=== PATIENT | female | born 1970 | race African-American/Black ===

== ENCOUNTER 2018-07-16 14:52 | Emergency (ER) | payer OTHER ==
--- NOTE | 2018-07-16 17:14 | ED ---
Psychiatric Complaint - HPI Summary HPI Summary: This patient is a 47 year old female presenting to [facility] with a chief complaint of cough for one month. She has tried over the counter medications but they have not relieved her symptoms. The patient denies fever, chills, nausea, and vomiting. - History Of Current Complaint Chief Complaint: EDUpperRespComplaint Time Seen by Provider: 07/16/18 17:00 Hx Obtained From: Patient Onset/Duration: Lasting Weeks Severity Initially: Severe Severity Currently: Severe - Allergies/Home Medications Allergies/Adverse Reactions: Allergies Allergy/AdvReac Type Severity Reaction Status Date / Time bee venom protein (honey bee) Allergy Swelling Verified 07/16/18 16:49 Of Face,Lips,& Throat latex Allergy Hives Verified 07/16/18 16:49 Penicillins Allergy Difficulty Verified 07/16/18 16:49 Swallowing PMH/Surg Hx/FS Hx/Imm Hx Cardiovascular History: Reports: Hx Hypertension - ON DAILY MED GI History: Reports: Hx Gastroesophageal Reflux Disease - [place] WITH DAILY MED Musculoskeletal History: Reports: Hx Tendonitis - BOTH HANDS/WRISTS Sensory History: Reports: Hx Contacts or Glasses - GLASSES Denies: Hx Hearing Aid Opthamlomology History: Reports: Hx Contacts or Glasses - GLASSES Psychiatric History: Reports: Hx Anxiety - ROUTINE AND PRN MEDICATION FOR - Cancer History Hx Chemotherapy: No Hx Radiation Therapy: No - Surgical History Surgery Procedure, Year, and Place: 1999 [place] [facility] [place] Anesthesia Reactions: No Infectious Disease History: No Infectious Disease History: Denies: Traveled Outside the [place] in Last 30 Days - Social History Alcohol Use: Occasionally Alcohol Amount: WEEKENDS Substance Use Type: Reports: None Smoking Status (MU): Former Smoker Amount Used/How Often: 1 PPD ?? X 1 YEAR Physical Exam Vital Signs On Initial Exam: Initial Vitals Temp Pulse Resp BP Pulse Ox 97.1 F 88 18 159/88 98 07/16/18 15:05 07/16/18 15:05 07/16/18 15:05 07/16/18 15:05 07/16/18 15:05 Diagnostics - Vital Signs Vital Signs Temp Pulse Resp BP Pulse Ox 07/16/18 16:48 96.9 F 91 14 155/91 99 07/16/18 15:05 97.1 F 88 18 159/88 98 - Laboratory Lab Statement: Any lab studies that have been ordered have been reviewed, and results considered in the medical decision making process. Discharge - Discharge Plan Referrals: Mary Kay Parham DO [Primary Care Provider] - - Attestation Statements Document Initiated by Scribe: Yes
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
[2018-07-16 18:17] LABS: Rapid Strep Molecular Negative (Negative)
[2018-07-16 18:45] VITALS: BP 138/84
== END 2018-07-16 18:44 | disposition home or self-care (01) ==
LOC: ED 14:52
DX: J06.9 Acute upper respiratory infection, unspecified (principal); I10 Essential (primary) hypertension; K21.9 Gastro-esophageal reflux disease without esophagitis; F41.9 Anxiety disorder, unspecified; Z88.0 Allergy status to penicillin; Z91.040 Latex allergy status; Z79.899 Other long term (current) drug therapy; Z87.891 Personal history of nicotine dependence
CPT/HCPCS: 71046; 87651; 99281

== ENCOUNTER 2019-11-19 22:52 | Inpatient (IN) ==
[2019-11-20 02:55] LABS: ALT 38 U/L (7-52); Albumin 4.5 g/dL (3.2-5.2); Albumin/Globulin Ratio 1.6 (1-3); Alkaline Phosphatase 212 U/L (34-104); BUN/Creatinine Ratio 11.5 (8-20); Blood Urea Nitrogen 7 mg/dL (6-24); CO2 Carbon Dioxide 15 mmol/L (22-32); Calcium 8.8 mg/dL (8.6-10.3); Chloride 98 mmol/L (101-111); EGFR African American 125.6 (>60); EGFR Non-African American 103.8 (>60); Globulin 2.9 g/dL (2-4); Glucose 92 mg/dL (70-100); Sodium 124 mmol/L (135-145); Total Protein 7.4 g/dL (6.4-8.9)
[2019-11-20 02:57] LABS: Troponin I 0.01 ng/mL (<0.03)
[2019-11-20 03:13] LABS: INR 1.33 (0.82-1.09)
[2019-11-20 03:17] LABS: Anion Gap 11 mmol/L (2-11)
[2019-11-20 03:28] LABS: Alcohol, S 54 mg/dL (<10)
[2019-11-20] MEDS ORDERED: Furosemide 40 mg/4 ml IV VIAL IV SLOW PU ONE (03:29)
[2019-11-20] MEDS ORDERED: Iohexol 300 (CONTRAST) 10 ML SDV IV ONE (03:34)
[2019-11-20 04:02] LABS: ABS Lymphocytes 1.4 10^3/ul (1.0-4.8); ABS Monocytes 0.4 10^3/ul (0-0.8); ABS Neutrophils 1.6 10^3/ul (1.5-7.7); Eosinophil % 1.3 %; Hematocrit 38 % (35-47); Hemoglobin 12.6 g/dL (12.0-16.0); Lymphocyte % 40.1 %; Mean Corpuscular HGB Conc 33 g/dL (31-36); Mean Corpuscular Hemoglobin 29 pg (27-31); Mean Corpuscular Volume 89 fL (80-97); Mean Platelet Volume 7.8 fL (7.4-10.4); Nucleated Red Blood Cells % 0.3; Platelet Count 158 10^3/uL (150-450); Red Blood Count 4.28 10^6 /uL (3.70-4.87); Red Cell Distribution Width 14 % (10-15); White Blood Count 3.5 10^3/uL (3.5-10.8)
[2019-11-20 04:18] LABS: Potassium Redraw 4.1 mmol/L (3.5-5.0)
[2019-11-20] MEDS ORDERED: Ondansetron 4 mg VIAL 2 MG/ML 2 ml VIAL IV PRN (05:54)
[2019-11-20] MEDS ORDERED: Thiamine 100 MG/ML 2 ml VIAL (200 mg) IM ONE (05:54)
[2019-11-20] MEDS ORDERED: Thiamine 100 MG/ML 2 ml VIAL 100 MG, Folic Acid 1 MG, Multiple Vitamin IV ADULT 10 ML i... IV ONE (07:30)
[2019-11-20 08:57] LABS: BUN/Creatinine Ratio 10.9 (8-20); Blood Urea Nitrogen 6 mg/dL (6-24); CO2 Carbon Dioxide 18 mmol/L (22-32); Calcium 9.8 mg/dL (8.6-10.3); Chloride 101 mmol/L (101-111); EGFR African American 141.6 (>60); Glucose 87 mg/dL (70-100); Sodium 133 mmol/L (135-145)
[2019-11-20 09:16] LABS: Troponin I 0.01 ng/mL (<0.03)
[2019-11-20 09:47] LABS: Anion Gap 14 mmol/L (2-11)
[2019-11-20] MEDS: Multivitamins/Minerals TAB PO SCH (10:01)
[2019-11-20] MEDS ORDERED: Potassium Chlor 20 meq TAB.ER PO ONE ×2 (14:05→19:20)
[2019-11-20 22:50] LABS: Ferritin 149.1 ng/mL (11-307)
[2019-11-21 02:17] LABS: Total Iron Binding Capacity 431 mcg/dL (250-450); Transferrin 308 mg/dL (203-362)
[2019-11-21 02:49] LABS: TSH Ultra Thyroid Stim Horm 4.18 mcIU/mL (0.34-5.60)
[2019-11-21 06:20] LABS: ABS Lymphocytes 1.1 10^3/ul (1.0-4.8); ABS Monocytes 0.6 10^3/ul (0-0.8); ABS Neutrophils 2.6 10^3/ul (1.5-7.7); Eosinophil % 1.1 %; Hematocrit 36 % (35-47); Hemoglobin 12.3 g/dL (12.0-16.0); Lymphocyte % 24.8 %; Mean Corpuscular HGB Conc 34 g/dL (31-36); Mean Corpuscular Hemoglobin 30 pg (27-31); Mean Corpuscular Volume 88 fL (80-97); Mean Platelet Volume 8.1 fL (7.4-10.4); Nucleated Red Blood Cells % 0.2; Platelet Count 155 10^3/uL (150-450); Red Blood Count 4.15 10^6 /uL (3.70-4.87); Red Cell Distribution Width 14 % (10-15); White Blood Count 4.3 10^3/uL (3.5-10.8)
[2019-11-21 06:44] LABS: Albumin 3.8 g/dL (3.2-5.2); Albumin/Globulin Ratio 1.7 (1-3); Calcium 8.8 mg/dL (8.6-10.3); EGFR Non-African American 105.8 (>60); Globulin 2.2 g/dL (2-4); Indirect Bilirubin 1.3 mg/dL (0.3-1.0); Potassium 3.2 mmol/L (3.5-5.0); Total Bilirubin 2.7 mg/dL (0.2-1.0)
[2019-11-21] MEDS ORDERED: Potassium Chlor 20 meq TAB.ER PO ONE ×2 (06:55→13:30)
[2019-11-21 07:04] LABS: INR 1.38 (0.82-1.09)
[2019-11-21 08:19] LABS: Magnesium 1.2 mg/dL (1.9-2.7)
[2019-11-21] MEDS ORDERED: HYDROmorphone 1 MG/1 ML SYRINGE ONE (08:32)
[2019-11-21] MEDS ORDERED: Midazolam 5 mg/5 ml VIAL 1 mg/ml 5 ml VIAL (5 mg) ONE (08:32)
[2019-11-21] MEDS ORDERED: diPHENhydraMINE IV 50 MG/ML 1 ml VIAL (BENADRYL) ONE (08:33)
[2019-11-21] MEDS ORDERED: VERAPAMIL 2.5 MG/ML 2 ML VIAL ** 5 mg/2 ml ONE (08:33)
[2019-11-21] MEDS ORDERED: Heparin 1,000 UNIT/ML 10 ml (10,000 UNITS) CATHLAB/DIALYSIS ONE (08:33)
[2019-11-21] MEDS ORDERED: Lidocaine 1% VIAL 10 MG/ML VIAL ONE (08:33)
[2019-11-21] MEDS ORDERED: Heparin 2 UNITS/ML 1000 mls 2,000 ML IV ONE (08:33)
[2019-11-21] MEDS ORDERED: nitroGLYCERIN DRIP 0 MCG/0 ML BTL ONE (08:33)
[2019-11-21] MEDS ORDERED: Iohexol 350 (CONTRAST) 200 ML MDV IV ONE (08:34)
[2019-11-21] MEDS ORDERED: Potassium Chlor 20 meq TAB.ER PO SCH (09:00)
[2019-11-21] MEDS ORDERED: NS 0.9% 1000 ml BAG 1,000 ML IV SCH (09:45)
[2019-11-21] MEDS ORDERED: Digoxin IV 0.5 MG/2 ML AMP (0.25 MG/ML) IV SLOW PU ONE (11:58)
[2019-11-21] MEDS ORDERED: Magnesium Sulfate IV 3 GM in NS 0.9% 100 ml BAG 100 ML IVPB ONE (11:59)
[2019-11-21] MEDS: Multivitamins/Minerals TAB PO SCH (12:15)
[2019-11-21] MEDS: Digoxin IV 0.5 MG/2 ML AMP (0.25 MG/ML) IV SLOW PU ONE ×2 (12:19→12:27)
[2019-11-21] MEDS ORDERED: Digoxin IV 0.5 MG/2 ML AMP (0.25 MG/ML) ONE (12:26)
[2019-11-21 13:33] LABS: BUN/Creatinine Ratio 16.4 (8-20); Calcium 8.6 mg/dL (8.6-10.3); EGFR African American 125.6 (>60); EGFR Non-African American 103.8 (>60); Magnesium 1.7 mg/dL (1.9-2.7); Potassium 3.7 mmol/L (3.5-5.0)
[2019-11-22] MEDS ORDERED: Morphine 2 MG/ML SYRINGE IV ONE (01:29)
[2019-11-22 06:27] LABS: BUN/Creatinine Ratio 17.6 (8-20); Calcium 8.9 mg/dL (8.6-10.3); EGFR African American 154.5 (>60); EGFR Non-African American 127.6 (>60); Magnesium 1.8 mg/dL (1.9-2.7); Potassium 3.8 mmol/L (3.5-5.0)
[2019-11-22] MEDS ORDERED: Magnesium Sulfate 2 gm BAG 2 GM/50 ML BAG IVPB ONE (06:49)
[2019-11-22] MEDS ORDERED: Potassium Chlor 20 meq TAB.ER PO SCH (09:00)
[2019-11-22] MEDS: Multivitamins/Minerals TAB PO SCH (09:05)
[2019-11-23 07:17] LABS: BUN/Creatinine Ratio 15.1 (8-20); Calcium 8.6 mg/dL (8.6-10.3); EGFR African American 147.7 (>60); EGFR Non-African American 122.1 (>60); Magnesium 1.6 mg/dL (1.9-2.7); Potassium 3.5 mmol/L (3.5-5.0)
[2019-11-23] MEDS ORDERED: Potassium Chlor 20 meq TAB.ER PO ONE (08:00)
[2019-11-23] MEDS ORDERED: Magnesium Sulfate IV 3 GM in NS 0.9% 100 ml BAG 100 ML IVPB ONE (08:00)
[2019-11-23] MEDS: Multivitamins/Minerals TAB PO SCH (09:06)
[2019-11-24] MEDS ORDERED: Magnesium Sulf 4 GM/100 ML IV 4,000 MG/100 ML BAG IVPB ONE (08:29)
[2019-11-24 09:10] LABS: Albumin/Globulin Ratio 1.6 (1-3); BUN/Creatinine Ratio 18.9 (8-20); Calcium 9.4 mg/dL (8.6-10.3); EGFR African American 147.7 (>60); EGFR Non-African American 122.1 (>60); Globulin 2.5 g/dL (2-4); Magnesium 1.7 mg/dL (1.9-2.7); Potassium 4.2 mmol/L (3.5-5.0); Total Bilirubin 2.2 mg/dL (0.2-1.0); Total Protein 6.5 g/dL (6.4-8.9)
[2019-11-24] MEDS: Multivitamins/Minerals TAB PO SCH (09:31)
[2019-11-24] MEDS ORDERED: Magnesium Sulfate 2 gm BAG 2 GM/50 ML BAG IVPB ONE (10:58)
[2019-11-25] MEDS ORDERED: Metoprolol Tartrate 5 mg VIAL 5 ml VIAL (1 mg/ml) IV ONE (00:11)
[2019-11-25] MEDS ORDERED: Metoprolol Tartrate 5 mg VIAL 5 ml VIAL (1 mg/ml) ONE (00:11)
[2019-11-25] MEDS: Multivitamins/Minerals TAB PO SCH (08:52)
[2019-11-25 10:06] LABS: BUN/Creatinine Ratio 15.7 (8-20); Calcium 9.2 mg/dL (8.6-10.3); EGFR African American 154.5 (>60); EGFR Non-African American 127.6 (>60); Magnesium 1.8 mg/dL (1.9-2.7); Potassium 4.5 mmol/L (3.5-5.0)
[2019-11-25] MEDS ORDERED: Magnesium Sulfate 2 gm BAG 2 GM/50 ML BAG IVPB ONE (17:32)
[2019-11-26] MEDS ORDERED: Metoprolol Tartrate 5 mg VIAL 5 ml VIAL (1 mg/ml) IV ONE ×4 (01:03→16:54)
[2019-11-26 01:47] LABS: Calcium 9.1 mg/dL (8.6-10.3); Potassium 4.5 mmol/L (3.5-5.0)
[2019-11-26 01:52] LABS: BUN/Creatinine Ratio 18.2 (8-20); EGFR African American 141.6 (>60)
[2019-11-26] MEDS: Multivitamins/Minerals TAB PO SCH (10:21)
[2019-11-26] MEDS ORDERED: Magnesium Sulf 4 GM/100 ML IV 4,000 MG/100 ML BAG IVPB ONE (12:00)
[2019-11-27] MEDS ORDERED: Magnesium Sulfate 2 gm BAG 2 GM/50 ML BAG IVPB ONE (08:40)
[2019-11-27] MEDS: Multivitamins/Minerals TAB PO SCH (09:02)
[2019-11-27 10:58] VITALS: BP 106/73
== END 2019-11-27 14:20 | disposition home or self-care (01) | DRG 192 ==
LOC: ED 22:52 → MEDTELE 22:52
PROVIDERS: ADMIT Nurse Practitioner Family; ATTEND Internal Medicine